=== PATIENT | female | born 1975 | race Caucasian/White ===

== ENCOUNTER 2017-06-26 14:09 | Emergency (ER) | payer OTHER ==
[~2017-06-26] VITALS: Ht 170.2 cm; Wt 65.8 kg
[2017-06-26 14:19] VITALS: BP 125/75
--- NOTE | 2017-06-26 14:50 | Emergency Room Report ---
History of Present Illness General Chief Complaint: Lower Extremity Injury Source: Patient (Junior Antony) Present Illness HPI 33-year-old female presents to ER complaining of left nolasco and ankle pain. States desk fell on foot and "slid down onto ankle" while at work. Patient complains of mild swelling and ecchymosis at site of injury Patient states she is able ambulate on her own Patient denies fever, LOC, SOB, dizziness. (Junior Antony) Allergies: Coded Allergies: No Known Allergies (Unverified , 06/26/17) Patient History Past Medical History: see triage record Social History: Reports: alcohol use - social, Denies: smoking, drug use Last Menstrual Period: 06/25/17 Immunizations: UTD Reviewed Nursing Documentation: PMH: Agreed, PSxH: Agreed (Junior Antony) Nursing Documentation-PMH Past Medical History: No Stated History (Junior Antony) Review of Systems All Other Systems: negative except mentioned in HPI (Junior Antony) Physical Exam Vital Signs Date Time Temp Pulse Resp B/P (MAP) Pulse Ox O2 Delivery O2 Flow Rate FiO2 06/26/17 14:19 97.9 67 18 125/75 100 Room Air Sp02 EP Interpretation: reviewed, normal General Appearance: no apparent distress, alert, GCS 15, non-toxic Head: normocephalic, atraumatic Eyes: bilateral eye normal inspection, bilateral eye PERRL, bilateral eye EOMI Neck: full range of motion, supple/symm/no masses Respiratory: lungs clear, normal breath sounds, no respiratory distress, speaking full sentences Cardiovascular #1: regular rate, rhythm, no edema Cardiovascular #2: 2+ dorsalis pedis (R), 2+ dorsalis pedis (L) Musculoskeletal: digits/nails normal, non-tender, no calf tenderness, decreased range of motion - secondary to pain, Karen's Sign negative, swelling - mild , other - NVI., tender - TTP over lateral posterior malleolus Neurologic: alert, oriented x3, responsive, motor strength/tone normal, sensory intact, speech normal Psychiatric: mood/affect normal Skin: normal color, no rash, warm/dry, well hydrated, other - mild swelling and ecchymosis at proximal anterior tibia, no break in skin, no active bleeding ; mild swelling along lateral ankle at malleolus, no active bleeding (Junior Antony) Medical Decision Making PA Attestation Dr. Park is my supervising Physician whom patient management has been discussed with. (Junior Antony) Diagnostic Impression: Primary Impression: Injury of lower extremity ER Course Pt. presents to the ED c/o left nolasco and ankle pain. Ddx considered but are not limited to fracture, sprain, strain, contusion, cellulitis, DVT. Vital signs: are WNL, pt. is afebrile ORDERS: An X-ray of the left ankle was ordered, results show no acute fracture, per the preliminary radiology reading ED INTERVENTIONS: Ibuprofen BRE wrap was applied to ankle. The affected ankle was checked afterwards by me showing good alignment and support with distal neurovascular functioning intact. DISCHARGE: -Rx provided for Ibuprofen for pain symptoms. At this time pt. is stable for d/c to home. Patient states she is able to ambulate on her own. Will provide printed patient care instructions, and any necessary prescriptions. Patient instructed to follow with primary care provider in 3 - 5 days and to discuss further orthopedic follow-up. Care plan and follow up instructions have been discussed with the patient prior to discharge. Patient instructed on RICE method: rest, ice, compression, elevation. Patient instructed to WBAT. Take medications as directed. Patient questions asked and answered. ER precautions given, patient instructed to return to ER immediately for any new or worsening of symptoms. (Junior Antony) Other X-Ray Diagnostic Results Other X-Ray Diagnostic Results : X-Ray ordered: Left ankle # of Views/Limited Vs Complete: 3 View Indication: Pain EP Interpretation: Yes PA Xray: Interpretation reviewed, by supervising MD, and agrees with findings. Interpretation: no dislocation, no soft tissue swelling, no fractures Impression: No acute disease PA Scribe Text Simone Antony PA-C (Junior Antony) Other X-Ray Diagnostic Results : Electronically Signed by: Dalliniblisette documentation reviewed by me and is accurate, Paulino Park MD (Paulino Park M.D.) Last Vital Signs Date Time Temp Pulse Resp B/P (MAP) Pulse Ox O2 Delivery O2 Flow Rate FiO2 06/26/17 14:19 97.9 67 18 125/75 100 Room Air (Junior Antony) Disposition: HOME, SELF-CARE Condition: Stable Scripts Ibuprofen* (MOTRIN*) 600 Mg Tablet 600 MG ORAL Q8H Y for For Pain, #30 TAB 0 Refills Prov: Junior Antony 06/26/17 Patient Instructions: Ankle Sprain, Foot Contusion Additional Instructions: Followup with primary care provider in 3 -5 days. Take medications as directed. Patient questions asked and answered. ER precautions given, patient instructed to return to ER immediately for any new or worsening of symptoms. Junior Antony Jun 26, 2017 14:50 Paulino Park M.D. Jul 01, 2017 10:17
[2017-06-26] MEDS ORDERED: IBUPROFEN600 MG ORAL (15:01)
--- NOTE | 2017-06-27 09:50 | Diagnostic Imaging Report ---
Indication: Pain Technique: XRAY Ankle Compl Min 3v L Comparison: None Findings: There is no acute fracture or dislocation. Ankle mortise is intact on these nonstress views. Anatomic alignment and joint spaces are preserved. No ankle joint effusion is evident. No focal soft tissue abnormality is appreciated. No radiopaque foreign body is seen. Impression: No acute fracture or dislocation.
== END 2017-06-26 15:30 | disposition home or self-care (01) ==
LOC: EMR 14:45
DX: S80.12XA Contusion of left lower leg, initial encounter (principal); S99.812A Other specified injuries of left ankle, initial encounter; W22.8XXA Striking against or struck by other objects, initial encounter; Y92.59 Other trade areas as the place of occurrence of the external cause; Y99.0 Civilian activity done for income or pay
CPT/HCPCS: 99283